=== PATIENT | female | born 1990 ===

== ENCOUNTER 2023-06-26 21:39 | Emergency (ER) | payer MEDICAID, OTHER ==
[~2023-06-26] VITALS: Ht 160 cm; Wt 71.0 kg
[2023-06-26 22:00] VITALS: PULSE 98; RESP 18; O2SAT 100
[2023-06-26] MEDS ORDERED: ACETAMINOPHEN 325 MG TAB PO ONE (22:30)
[2023-06-26 22:42] VITALS: BP 135/66; PULSE 90; RESP 15; TEMP 98.2; O2SAT 96
[2023-06-26] MEDS ORDERED: AUG875T PO ×2 (22:47)
[2023-06-26] MEDS ORDERED: CLIN300C70 PO (23:07)
== END 2023-06-26 23:17 | disposition home or self-care (01) ==
LOC: ER 21:39
DX: O9A.213 Injury, poisoning and certain other consequences of external causes complicating pregnancy, third trimester (principal); O26.893 Other specified pregnancy related conditions, third trimester; S68.125A Partial traumatic metacarpophalangeal amputation of left ring finger, initial encounter; Z3A.37 37 weeks gestation of pregnancy; Z88.1 Allergy status to other antibiotic agents; W54.0XXA Bitten by dog, initial encounter; Y93.89 Activity, other specified; Y92.89 Other specified places as the place of occurrence of the external cause; Y99.8 Other external cause status
CPT/HCPCS: 73130